=== PATIENT | male | born 1990 ===

== ENCOUNTER 2017-08-09 19:29 | Emergency (ER) | payer SELFPAY ==
[2017-08-09 19:39] VITALS: BP 149/82; PULSE 100; RESP 18; TEMP 97.8; O2SAT 100
--- NOTE | 2017-08-09 19:49 | ED PDOC ---
HPI: Male Pain Time Seen by Provider: 08/09/17 19:40 Chief Complaint (Nursing): Male Genitourinary Chief Complaint (Provider): Male Genitourinary History Per: Patient History/Exam Limitations: no limitations Onset/Duration Of Symptoms: Days Current Symptoms Are (Timing): Still Present Additional Complaint(s): Bryant Lucas is a 27 year old male that presents to the ED with a chief complaint of itchy and dry genital sores. Patient reports that he has never experienced anything like this in the past, and that the lesions are not painful. Past Medical History Reviewed: Historical Data, Nursing Documentation, Vital Signs Vital Signs: Last Vital Signs Temp 97.8 F 08/09/17 19:36 Pulse 100 H 08/09/17 19:36 Resp 18 08/09/17 19:36 BP 149/82 08/09/17 19:36 Pulse Ox 100 08/09/17 19:36 - Medical History PMH: No Chronic Diseases - Family History Family History: States: Unknown Family Hx - Home Medications Home Medications: Ambulatory Orders Medication Instructions Recorded Valacyclovir HCl [Valacyclovir] 500 mg PO BID #14 tablet 08/09/17 - Allergies Allergies/Adverse Reactions: Allergies Allergy/AdvReac Type Severity Reaction Status Date / Time No Known Allergies Allergy Verified 08/09/17 19:39 Review of Systems Genitourinary Male: Positive for: Other (genital sores) Physical Exam - Reviewed Nursing Documentation Reviewed: Yes Vital Signs Reviewed: Yes - Physical Exam Appears: Positive for: Non-toxic, No Acute Distress Head Exam: Positive for: ATRAUMATIC, NORMOCEPHALIC Skin: Positive for: Normal Color, Warm Eye Exam: Positive for: Normal appearance, EOMI, PERRL Male Genital Exam: Positive for: lesions (Dried vesicular herpatic lesions present to the groin area. No surrounding erythema, no swelling of groin lymph nodes.). Negative for: normal genitalia Neurologic/Psych: Positive for: Alert, Oriented. Negative for: Motor/Sensory Deficits - ECG O2 Sat by Pulse Oximetry: 100 (RA) Pulse Ox Interpretation: Normal Medical Decision Making Medical Decision Making: Impression: Herpes Plan: * HSV 1/2 IGG/IGM blood tests. advises pt to abstain from sexual intercoruse until results and was givne Rx for valtrex if with (+) results. * pt understands and agrees with plan. * Reevaluation Scribe Attestation: Documented by Anaya Bacon, acting as a scribe for Amy Cline PA-C. Provider Scribe Attestation: All medical record entries made by the Scribe were at my direction and personally dictated by me. I have reviewed the chart and agree that the record accurately reflects my personal performance of the history, physical exam, medical decision making, and the department course for this patient. I have also personally directed, reviewed, and agree with the discharge instructions and disposition. Disposition - Clinical Impression Clinical Impression: Vesicular lesion - Patient ED Disposition Is Patient to be Admitted: No Counseled Patient/Family Regarding: Studies Performed, Diagnosis, Need For Followup, Rx Given - Disposition Disposition: Routine/Home Disposition Time: 20:01 Condition: STABLE Additional Instructions: your test results will be resulted in 5-6days. continue discharge instructions until results are in. Prescriptions: Valacyclovir HCl [Valacyclovir] 500 mg PO BID #14 tablet Instructions: Genital Herpes Simplex (ED) Forms: [employer] (Togolese) Print Language: BERMUDIAN
== END 2017-08-09 20:34 | disposition home or self-care (01) ==
LOC: H.ER 19:29
DX: B00.1 Herpesviral vesicular dermatitis (principal)